=== PATIENT | female | born 1965 | race Caucasian/White ===

== ENCOUNTER 2017-02-12 01:25 | Emergency (ER) | payer OTHER ==
[2017-02-12 01:31] VITALS: BP 108/74; PULSE 98; TEMP 98.1; BMI 28.8
[2017-02-12] MEDS ORDERED: SODIUM CHLORIDE 1,000 ML IV STA (01:49)
--- NOTE | 2017-02-12 02:22 | PDOC ---
History of Present Illness - General Chief Complaint: Syncope/Near Syncope Stated Complaint: SYNCOPY Time Seen by Provider: 02/12/17 01:38 History Source: Patient, Family, Significant Other Exam Limitations: Language Barrier - History of Present Illness Initial Comments: 02/12/17 02:11 51yo Female patient w/ PmHx: Hypothyroidism presents to ED via EMS w/ family c/ o syncopal episode. Family state they were all talking with arguing when patient suddenly felt faint. states patient screamed out "I'm feeling bad," prior to passing out. +LOC. Family member lift patient off floor and assisted her to bed. At this point patient began to c/o chest pain with pain radiating down both arms. Patient denies n/v/d, fever, cough, congestion, back pain, diff breathing or any other complaints at this time. Associated anxiety. Presenting Symptoms: Chest Pain, Syncope Timing/Duration: reports: resolved prior to arrival Severity/Quality: reports: mild Location: reports: substernal Chest Pain Radiation: reports: arms Activities at Onset: reports: emotional upset Prior Chest Pain/Cardiac Workup: reports: No prior chest pain, No prior cardiac workup Aspirin Received prior to arrival (Core Measure): No: no aspirin today, unknown , 81 mg x 1, 81 mg x 2, 81 mg x 3, 81 mg x 4, 325 mg x 1, provided at home, provided by EMS, provided by ED Past History - Travel Traveled outside of the country in the last 30 days: No Close contact w/someone who was outside of country & ill: No - Past Medical History Allergies/Adverse Reactions: Allergies Allergy/AdvReac Type Severity Reaction Status Date / Time No Known Allergies Allergy Verified 02/12/17 01:31 Home Medications: Ambulatory Orders Levothyroxine Sodium [Synthroid] 25 mcg PO DAILY 09/25/16 Amoxicillin/Potassium Clav [Augmentin 875-125 Tablet] 1 each PO Q12H #14 tablet 02/12/17 Thyroid Disease: Yes (hypothyroidism) - Psycho/Social/Smoking Cessation Hx Anxiety: No Suicidal Ideation: No Smoking Status: No Smoking History: Never smoked Have you smoked in the past 12 months: No Information on smoking cessation initiated: No Hx Alcohol Use: No Drug/Substance Use Hx: No Substance Use Type: None Hx Substance Use Treatment: No Cardiac Specific PMH - Complaint Specific PMHX Abdominal Aortic Aneurysm: No Angina: No Cardiac Arrhythmia: No Cardiac Stent: No GERD: No Myocardial Infarction: No Pacemaker: No Pulmonary Embolus: No Valvular Heart Disease: No Peripheral Vascular Disease: No Review of Systems - Review of Systems Able to Perform ROS?: Yes Is the patient limited Spanish proficient: No Constitutional: No: Chills, Fever Respiratory: No: Cough, Shortness of Breath, Wheezing Cardiac (ROS): Yes: Chest Pain, Syncope. No: Lightheadedness, Palpitations, Chest Tightness ABD/GI: No: Diarrhea, Nausea, Poor Appetite, Poor Fluid Intake, Vomiting : No: Dysuria, Hematuria Musculoskeletal: Yes: Other (Bilateral Arm Pain). No: Back Pain Integumentary: No: Bruising, Erythema, Rash Neurological: Yes: Headache. No: Numbness, Paresthesia, Seizure, Tingling, Tremors, Weakness, Ataxia, Dizziness All Other Systems: Reviewed and Negative *Physical Exam - Vital Signs Last Vital Signs Temp Pulse Resp BP Pulse Ox 98.1 F 98 H 16 108/74 100 02/12/17 01:28 02/12/17 01:28 02/12/17 01:28 02/12/17 01:28 02/12/17 01:28 - Physical Exam General Appearance: Yes: Nourished, Appropriately Dressed. No: Apparent Distress, Mild Distress, Moderate Distress, Severe Distress HEENT: positive: EOMI, VAMSHI, Normal ENT Inspection, Normal Voice, Symmetrical, TMs Normal, Pharynx Normal. negative: Pharyngeal Erythema, Tonsillar Exudate, Tonsillar Erythema, TM Bulging, TM Dull, TM Erythema Neck: positive: Trachea midline, Supple. negative: Normal Thyroid, Decreased range of motion, Stridor, Lymphadenopathy (R), Lymphadenopathy (L) Respiratory/Chest: positive: Lungs Clear, Normal Breath Sounds. negative: Respiratory Distress, Accessory Muscle Use, Labored Respiration, Rapid RR, Wheezing Cardiovascular: positive: Regular Rhythm, Regular Rate. negative: Edema, JVD, Murmur Gastrointestinal/Abdominal: positive: Normal Bowel Sounds, Soft. negative: Distended, Guarding, Rebound, Tenderness Musculoskeletal: positive: Normal Inspection. 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7 Urine Color Yellow Urine Appearance Clear Urine pH 5.0 Ur Specific [place] 1.025 Urine Protein Negative Urine Glucose (UA) Negative Urine Ketones Negative Urine Blood 2+ H Urine Nitrite Negative Urine Bilirubin Negative Urine Urobilinogen Negative Ur Leukocyte Esterase 1+ H Urine RBC 77 Urine WBC 10 Ur Epithelial Cells Rare Urine Mucus Rare Urine HCG, Qual Negative 02/12/17 02:11 RBC 5.80 H MCV 66.9 L MCHC 31.8 L RDW 15.7 H MPV 7.8 Neutrophils % 55.0 Lymphocytes % 35.4 Monocytes % 5.7 Eosinophils % 3.4 Basophils % 0.5 - RADIOLOGY Radiology Studies Ordered: Category Date Time Status CERVICAL SPINE CT W/O CONTR [CT] Stat CT Scan 02/12/17 02:[address] WITHOUT CONTRAST [CT] Stat CT Scan 02/12/17 01:50 Taken CHEST PA & LAT [RAD] Stat Radiology 02/12/17 01:49 Taken - Medications Given in the ED: ED Medications Discontinued Medications Generic Name Dose Route Start Last Admin Trade Name Freq PRN Reason Stop Dose Admin Sodium Chloride 1,000 mls @ 1,000 mls/hr 02/12/17 01:49 02/12/17 02:03 Normal Saline - IV 02/12/17 02:48 1,000 mls/hr ASDIR STA Administration *DC/Admit/Observation/Transfer Diagnosis at time of Disposition: Vasovagal syncope, Anxiety Acute sinusitis Qualifiers: Sinusitis location: frontal Recurrence: non-recurrent Qualified Code(s): J01.10 - Acute frontal sinusitis, unspecified - Discharge Dispostion Disposition: HOME Condition at time of disposition: Improved Admit: No - Prescriptions Prescriptions: Amoxicillin/Potassium Clav [Augmentin 875-125 Tablet] 1 each PO Q12H #14 tablet - Referrals Referrals: Beatris Urena MD [Primary Care Provider] - - Patient Instructions Printed Discharge Instructions: DI for Syncope in Adults (Fainting), DI for Sinusitis Additional Instructions: FOLLOW UP WITH YOUR PRIMARY CARE PROVIDER THIS WEEK. CALL TO SCHEDULE APPOINTMENT. TAKE MEDICATIONS PRESCRIBED. CT-SCAN OF YOUR HEAD REVEALED SINUS INFECTION WHICH I HAVE PROVIDED YOU ANTIBIOTICS. ALL LAB AND RADIOLOGY RESULTS WERE WITHIN NORMAL LIMITS. RETURN IF YOUR SYMPTOMS WORSEN OR ANY CONCERNS FOR FURTHER EVALUATION. SEGUIMIENTO CON BLANDON PROVEEDOR DE CUIDADO PRIMARIO ESTA SEMANA. LLAMAR PARA CALIFICAR LA QUINN. JASPAL MEDICAMENTOS TIARRA SE PRESCRIBE. CT-SCAN DE BLANDON ANAYA REVELADO INFECCIN SINUS QUE HE PROPORCIONADO ANTIBITICOS. TODOS LOS RESULTADOS DE LABORATORIO Y RADIOLOGA FUERON DENTRO DE LMITES NORMALES. REGRESE SI WILL SNTOMAS RESULTAN O CUALQUIER PREOCUPACIN PARA YANELI EVALUACIN ADICIONAL. Print Language: TAMAZIGHT
[2017-02-12 02:31] LABS: BASOPHIL 0.5 % (0-2.0); EOSINOPHIL 3.4 % (0-4.5); MCH 21.3 pg (25.7-33.7); MCHC 31.8 g/dl (32.0-36.0); MEAN CELL VOLUME 66.9 fl (80-96); MEAN PLT VOLUME 7.8 fl (7.5-11.1); PLATELET COUNT 205 K/MM3 (134-434); RDW 15.7 % (11.6-15.6); URINE APPEARANCE CLEAR; URINE BILIRUBIN NEGATIVE (NEGATIVE); URINE COLOR YELLOW; URINE GLUCOSE (UA) NEGATIVE (NEGATIVE); URINE KETONE NEGATIVE (NEGATIVE); URINE NITRITE NEGATIVE (NEGATIVE); URINE PROTEIN NEGATIVE (NEGATIVE); URINE UROBILINOGEN NEGATIVE E.U./dl (0.2-1.0); WHITE BLOOD COUNT 6.8 K/mm3 (4.0-10.0)
[2017-02-12 02:33] LABS: URINE BLOOD 2+ (NEGATIVE); URINE LEUK ESTERASE 1+ (NEGATIVE)
[2017-02-12 02:35] LABS: URINE MUCUS RARE; URINE RBC 77 /hpf (0-3); URINE WBC 10 /hpf (3-5)
[2017-02-12 02:51] LABS: ALBUMIN 3.7 g/dl (3.4-5.0); ANION GAP 10 (8-16); BILIRUBIN,TOTAL 0.2 mg/dL (0.2-1.0); CALCIUM 8.4 mg/dL (8.5-10.1); CO2 25 mmol/L (21-32); CREATININE 0.8 mg/dL (0.55-1.02); GLUCOSE,RANDOM 97 mg/dL (74-106); SGOT/AST 11 U/L (15-37); SGPT/ALT 20 U/L (12-78); TOT PROT 6.9 g/dl (6.4-8.2)
[2017-02-12 02:54] LABS: ALK PHOS 75 U/L (45-117); TROPONIN I < 0.02 ng/ml (0.00-0.05)
[2017-02-12] MEDS ORDERED: AMOX TR/POT CLAV 875MG/125MG TABLETS (FP) PO ONE (03:34)
[2017-02-12] MEDS ORDERED: AMOX TR/POT CLAV 875MG/125MG TABLETS (FP) ONE (04:04)
--- NOTE | 2017-02-12 12:36 | EKG ---
Test Reason : Blood Pressure : / mmHG Vent. Rate : 090 BPM Atrial Rate : 090 BPM P-R Int : 192 ms QRS Dur : 084 ms QT Int : 356 ms P-R-T Axes : 069 072 050 degrees QTc Int : 435 ms NORMAL SINUS RHYTHM LOW VOLTAGE QRS BORDERLINE ECG NO PREVIOUS ECGS AVAILABLE Confirmed by SYLVESTER DAY MD ([id number]) on 02/12/2017 12:36:13 PM Referred By: Confirmed By:SYLVESTER DAY MD
== END 2017-02-12 04:12 | disposition home or self-care (01) ==
LOC: SUPCPDRO 01:25 → JER 01:25
PROC: 3E0337Z Introduction of Electrolytic and Water Balance Substance into Peripheral Vein, Percutaneous Approach (ICD-10-PCS; principal; 2017-02-12)
DX: R55 Syncope and collapse (principal); F41.9 Anxiety disorder, unspecified; J01.10 Acute frontal sinusitis, unspecified; E03.9 Hypothyroidism, unspecified
CPT/HCPCS: 36415; 70450-TC; 71020-TC; 72125-TC; 80053; 81003; 81015; 82550; 84484; 84703; 85025; 93005; 93010; 99284-25

== ENCOUNTER 2022-12-13 09:32 | Day surgery (SDC) | payer OTHER ==
[2022-12-06 09:59] VITALS: BMI 30.5
[2022-12-13 12:07] VITALS: TEMP 97.5
[2022-12-13 12:56] VITALS: BP 118/68; PULSE 75; RESP 16
== END 2022-12-13 12:53 | disposition home or self-care (01) ==
LOC: FASU-ENDO 09:32
PROVIDERS: ATTEND Internal Medicine Gastroenterology
PROC: 0DBL8ZX Excision of Transverse Colon, Via Natural or Artificial Opening Endoscopic, Diagnostic (ICD-10-PCS; 2022-12-13)
PROC: 0DBN8ZX Excision of Sigmoid Colon, Via Natural or Artificial Opening Endoscopic, Diagnostic (ICD-10-PCS; principal; 2022-12-13 11:38)
DX: D12.5 Benign neoplasm of sigmoid colon (principal); D12.3 Benign neoplasm of transverse colon; K64.1 Second degree hemorrhoids; K64.8 Other hemorrhoids; K57.30 Diverticulosis of large intestine without perforation or abscess without bleeding
CPT/HCPCS: 88305-TC